=== PATIENT | female | born 1945 | race Caucasian/White ===

== ENCOUNTER → 2017-08-25 | Outpatient (REF) | payer BC, OTHER | LOC: M LAB REF 15:25 | PROVIDERS: ATTEND Nurse Practitioner Family | DX: L08.9 Local infection of the skin and subcutaneous tissue, unspecified (principal) ==

== ENCOUNTER → 2018-05-26 | Outpatient (CLI) | payer MEDICARE, BC, OTHER | LOC: M RAD 09:18 | DX: I70.0 Atherosclerosis of aorta (principal); I71.4 Abdominal aortic aneurysm, without rupture | CPT/HCPCS: 76775 ==

== ENCOUNTER → 2018-07-18 | Outpatient (CLI) | payer MEDICARE, BC, OTHER | LOC: M RAD 12:03 | DX: I73.9 Peripheral vascular disease, unspecified (principal) | CPT/HCPCS: 93979 ==

== ENCOUNTER → 2018-08-21 | Outpatient (CLI) | payer MEDICARE, BC, OTHER ==
[~2018-08-21] MED LIST: HEPARIN 1,000 UNITS/ML 10ML VIAL (FOR RADIOLOGY& DIALYSIS ONLY) As Ordered; ISOVUE-300 61% 50ML VIAL (Q9967) As Ordered; LIDOCAINE 2% MDV 20 ML VIAL As Ordered; MIDAZOLAM INJ 2 MG/2 ML VIAL (J2250) As Ordered; fentaNYL 100 MCG/2 ML INJECTION (J3010) As Ordered
[2018-08-21 07:05] LABS: HEMATOCRIT 34.8 % (36.0-47.0); HEMOGLOBIN 11.7 g/dl (12.0-15.5); MEAN CORPUSCULAR HEMOGLOBIN 29.6 pg (27.0-33.0); MEAN CORPUSCULAR HGB CONC 33.6 g/dl (32.0-36.5); MEAN CORPUSCULAR VOLUME 88.1 fl (80.0-96.0); PLATELET COUNT, AUTOMATED 352 10^3/uL (150-450); RED BLOOD COUNT 3.95 10^6/uL (4.00-5.40); RED CELL DISTRIBUTION WIDTH 11.7 % (11.5-14.5); WHITE BLOOD COUNT 7.7 10^3/uL (4.0-10.0)
[2018-08-21 07:23] LABS: ANION GAP 9 MEQ/L (8-16); BLOOD UREA NITROGEN 19 MG/DL (7-18); CALCIUM LEVEL 8.9 MG/DL (8.8-10.2); CARBON DIOXIDE LEVEL 24 MEQ/L (21-32); CHLORIDE LEVEL 108 MEQ/L (98-107); CREATININE FOR GFR 1.07 MG/DL (0.55-1.30); GLOMERULAR FILTRATION RATE 53.7 (>39); GLUCOSE, FASTING 94 MG/DL (70-100); POTASSIUM SERUM 4.3 MEQ/L (3.5-5.1); SODIUM LEVEL 141 MEQ/L (136-145)
== END | disposition home or self-care (01) ==
LOC: M IRPRO 06:32
DX: I71.4 Abdominal aortic aneurysm, without rupture (principal); I70.0 Atherosclerosis of aorta; I70.213 Atherosclerosis of native arteries of extremities with intermittent claudication, bilateral legs
CPT/HCPCS: 36200

== ENCOUNTER → 2018-08-25 | Outpatient (CLI) | payer MEDICARE, BC, OTHER | END | disposition home or self-care (01) | LOC: M IRPRO 08:44 | DX: I70.213 Atherosclerosis of native arteries of extremities with intermittent claudication, bilateral legs (principal); I70.0 Atherosclerosis of aorta; I71.4 Abdominal aortic aneurysm, without rupture | CPT/HCPCS: 37221 ==

== ENCOUNTER → 2018-10-02 | Outpatient (CLI) | payer MEDICARE, BC, OTHER ==
--- NOTE | 2018-10-02 13:27 | REP ---
Bilateral lower extremity arterial Doppler ultrasound: History: Peripheral vascular disease. Bilateral common iliac and external iliac artery stents. Findings: Ankle brachial indices are normal 1.3 on the right and 1.2 on the left. Bilaterally patent common iliac artery and external iliac artery stents are seen. Biphasic waveforms are noted in the arterial tree in the lower extremities bilaterally. An abdominal aortic aneurysm is noted distally measuring 3.1 cm in greatest anteroposterior dimension. Greatest transverse dimension is 4.1 cm. Mildly increased velocities seen in the common femoral artery on the left. No other evidence of significant stenosis seen. Right lower extremity arterial velocity chart: Right WHITNEY 194 cm/S D I A 117 CF A 169 Profunda 90 Proximal SFA 134 Mid SFA 110 Distal SFA 113 Popliteal 61 Proximal AT A 45 Tibioperoneal trunk 64 Proximal INDIAN TRADER 78 Distal INDIAN TRADER 76 Distal AT A 46 Left lower extremity arterial velocity chart. Left WHITNEY 178 cm/S D I A 130 CF A 200 Profunda 133 Proximal SFA 107 Mid SFA 100 Distal SFA 117 Popliteal 95 Proximal AT A 47 Tibioperoneal trunk 65 Proximal INDIAN TRADER 74 Distal INDIAN TRADER 60 Distal AT A 62 Electronically Signed by Darnell Bailey MD 10/02/2018 01:19 P
== END ==
LOC: M RAD 10:26
PROVIDERS: ATTEND Surgery Vascular Surgery
DX: I73.9 Peripheral vascular disease, unspecified (principal)

== ENCOUNTER 2018-11-06 09:16 | Day surgery (SDC) | payer MEDICARE, BC, OTHER ==
[~2018-11-06] VITALS: Ht 162.6 cm; Wt 64.0 kg
[~2018-11-06 09:16] MED LIST changes: +ASPI81TA85 PO; +CALC600T57 PO; +COLA100C5 PO; +CRES10TA32 PO; +FENO145T13 PO; -HEPARIN 1,000 UNITS/ML 10ML VIAL (FOR RADIOLOGY& DIALYSIS ONLY) As Ordered; -ISOVUE-300 61% 50ML VIAL (Q9967) As Ordered; -LIDOCAINE 2% MDV 20 ML VIAL As Ordered; +LISI-538 PO; -MIDAZOLAM INJ 2 MG/2 ML VIAL (J2250) As Ordered; +OMEP20CA3 PO; -fentaNYL 100 MCG/2 ML INJECTION (J3010) As Ordered
[2018-11-06] MEDS ORDERED: NS 1,000 ML IV ONE (10:00)
[2018-11-06] MEDS ORDERED: LIDOCAINE 2% INJ 100 MG/5 ML SDV (FOR ANES.) As Ordered ONE (10:17)
[2018-11-06] MEDS ORDERED: PROPOFOL 200 MG/20 ML VIAL As Ordered ONE (10:17)
[2018-11-06] MEDS ORDERED: fentaNYL 100 MCG/2 ML INJECTION (J3010) As Ordered ONE (10:23)
--- NOTE | 2018-11-06 11:03 | ROOR ---
Patient Name: Mirta Chavira Procedure Date: 11/06/2018 10:44 AM Date of : 1945 Age: 72 Room: [facility] Gender: Female Note Status: Finalized Procedure: Upper GI endoscopy + Balloon Dilatation Indications: Dysphagia, Heartburn Providers: Sekou Vazquez MD Referring MD: Farhan Crocker NP Requesting Provider: Medicines: Monitored Anesthesia Care Complications: No immediate complications. Procedure: Pre-Anesthesia Assessment: - The heart rate, respiratory rate, oxygen saturations, blood pressure, adequacy of pulmonary ventilation, and response to care were monitored throughout the procedure. The Endoscope was introduced through the mouth, and advanced to the second part of duodenum. The upper GI endoscopy was accomplished without difficulty. The patient tolerated the procedure well. Findings: The Z-line was variable and was found 35 cm from the incisors. A TTS dilator was passed through the scope. Dilation with an 18-19-20 mm balloon dilator was performed to 20 mm. A small hiatal hernia was present. The exam of the stomach was otherwise normal. The exam of the duodenum was otherwise normal. Impression: - Z-line variable, 35 cm from the incisors. Dilated. - Small hiatal hernia. - No specimens collected. - The examination was otherwise normal. Recommendation: - Patient has a contact number available for emergencies. The signs and symptoms of potential delayed complications were discussed with the patient. Return to normal activities tomorrow. Written discharge instructions were provided to the patient. - High fiber diet. - Discharge patient to home. - Continue present medications. - Return to referring physician. - The findings and recommendations were discussed with the patient's family. Sekou Vazquez MD Sekou Vazquez MD 11/06/2018 11:02:26 AM This report has been signed electronically. Number of Addenda: 0 Note Initiated On: 11/06/2018 10:44 AM Estimated Blood Loss: Estimated blood loss: none.
[2018-11-06] MEDS ORDERED: PHENYLephrine HCL 500 MCG/5 ML (100MCG/ML) SYRINGE (J2370) As Ordered ONE (11:04)
--- NOTE | 2018-11-06 11:27 | ROOR ---
Patient Name: Mirta Chavira Procedure Date: 11/06/2018 10:44 AM Date of : 1945 Age: 72 Room: [facility] Gender: Female Note Status: Finalized Procedure: Total Colonoscopy to Cecum + Biopsy Polypectomy Indications: High risk colon cancer surveillance: Personal history of colonic polyps, Last colonoscopy 5 years ago Providers: Sekou Vazquez MD Referring MD: Farhan Crocker NP Requesting Provider: Medicines: Monitored Anesthesia Care Complications: No immediate complications. Procedure: Pre-Anesthesia Assessment: - The heart rate, respiratory rate, oxygen saturations, blood pressure, adequacy of pulmonary ventilation, and response to care were monitored throughout the procedure. The Colonoscope was introduced through the anus and advanced to the cecum, identified by appendiceal orifice and ileocecal valve. The colonoscopy was performed without difficulty. The patient tolerated the procedure well. The quality of the bowel preparation was excellent. Findings: The perianal and digital rectal examinations were normal. Non-bleeding internal hemorrhoids were found during retroflexion. The hemorrhoids were small and Grade I (internal hemorrhoids that do not prolapse). Scattered small-mouthed diverticula were found in the recto-sigmoid colon and sigmoid colon. A small polyp was found at 60 cm proximal to the anus. The polyp was sessile. The polyp was removed with a cold biopsy forceps. Resection and retrieval were complete. Multiple sessile polyps were found in the rectum. The polyps were small in size. These polyps were removed with a jumbo cold forceps. Resection and retrieval were complete. The exam was otherwise without abnormality on direct and retroflexion views. Impression: - Non-bleeding internal hemorrhoids. - Diverticulosis in the recto-sigmoid colon and in the sigmoid colon. - One small polyp at 60 cm proximal to the anus, removed with a cold biopsy forceps. Resected and retrieved. - Multiple small polyps in the rectum, removed with a jumbo cold forceps. Resected and retrieved. - The examination was otherwise normal on direct and retroflexion views. - The exam was otherwise normal to the cecum. Recommendation: - Patient has a contact number available for emergencies. The signs and symptoms of potential delayed complications were discussed with the patient. Return to normal activities tomorrow. Written discharge instructions were provided to the patient. - High fiber diet. - Discharge patient to home. - Continue present medications. - Await pathology results. - Telephone GI clinic for pathology results in 1 week. - Repeat colonoscopy for symptoms only. - Return to referring physician. - The findings and recommendations were discussed with the patient's family. Sekou Vazquez MD Sekou Vazquez MD 11/06/2018 11:27:34 AM This report has been signed electronically. Number of Addenda: 0 Note Initiated On: 11/06/2018 10:44 AM Estimated Blood Loss: Estimated blood loss: none.
[2018-11-06 11:50] VITALS: BP 143/67
== END 2018-11-06 11:58 | disposition home or self-care (01) ==
LOC: M OPP 09:16
PROVIDERS: ATTEND Internal Medicine Gastroenterology
DX: Z12.11 Encounter for screening for malignant neoplasm of colon (principal); Z86.010 Personal history of colon polyps; K64.0 First degree hemorrhoids; D12.6 Benign neoplasm of colon, unspecified; K62.1 Rectal polyp; K57.30 Diverticulosis of large intestine without perforation or abscess without bleeding; K22.8 Other specified diseases of esophagus; K44.9 Diaphragmatic hernia without obstruction or gangrene; R13.10 Dysphagia, unspecified; R12 Heartburn; Z79.82 Long term (current) use of aspirin; Z79.899 Other long term (current) drug therapy; Z88.8 Allergy status to other drugs, medicaments and biological substances; Z87.891 Personal history of nicotine dependence
CPT/HCPCS: 43249; 45380; 88305; J2370; J3010

== ENCOUNTER → 2019-06-05 | Outpatient (CLI) | payer MEDICARE, BC, OTHER ==
[~2019-06-05] MED LIST changes: +CRES10TA PO; -CRES10TA32 PO; -FENO145T13 PO; +FENO145T7 PO; +OMEP1CAP73 PO; -OMEP20CA3 PO
--- NOTE | 2019-06-05 12:36 | REP ---
Abdominal aorta ultrasound: Abdominal Aortic Measurements are as follows: Proximal 2.4 cm AP 2.4 cm TRV Renal Artery Level not seen cm AP not seen cm TRV Mid Aorta 1.9 cm AP 1.8 cm TRV Distal Aorta 3.9 cm AP 4.0 cm TRV R Iliac Artery 0.8 cm AP 1.0 cm TRV L Iliac Artery 1.3 cm AP 1.3 cm TRV There is an aneurysm of the distal aorta measuring 3.9 x 4.0 cm and spanning a craniocaudad length of 5.2 cm. There is atheromatous plaque in the distal abdominal aorta. There are bilateral endovascular stents in the common iliac arteries and external iliac arteries bilaterally. The stents are patent bilaterally. Right WHITNEY flow velocity is 317 cm/sec with biphasic Phasicity. The right E I A flow velocity is 206 cm/sec with biphasic Phasicity. The left WHITNEY flow velocity is 308 cm/sec with biphasic Phasicity. The left EIA flow velocity is 185 cm/sec with biphasic Phasicity. Electronically Signed by Francisco Javier Garcia MD 06/05/2019 12:28 P
--- NOTE | 2019-06-05 13:12 | REP ---
BILATERAL LOWER EXTREMITY DUPLEX DOPPLER ARTERIAL ULTRASOUND: Real-time ultrasound evaluation and duplex Doppler interrogation of bilateral lower extremity arterial systems is performed. There is mild to moderate scattered plaquing and narrowing diffusely bilaterally. JIM right is 0.9 and left 1.0. There is no definite duplex Doppler sonographic evidence of hemodynamically significant stenosis of the bilateral lower extremity arterial systems. Biphasic waveforms are seen diffusely bilaterally. PEAK SYSTOLIC VELOCITY RIGHT LEFT Common femoral artery 197.0 cm/s 124.0 cm/s Profunda 83.4 121.0 Proximal SFA 91.2 91.1 Superficial femoral artery mid 95.3 101.0 Superficial femoral artery distal 91.8 105.0 Popliteal 53.5 99.0 Proximal anterior tibial artery 30.1 37.3 Tibial peroneal trunk 73.7 69.7 Proximal posterior tibial artery 75.7 102.0 Distal posterior tibial artery 81.8 65.9 Distal anterior tibial artery 89.3 51.0 Electronically Signed by Francisco Javier Henriquez MD 06/06/2019 10:13 A
== END ==
LOC: M RAD 09:53
PROVIDERS: ATTEND Surgery Vascular Surgery
DX: I71.4 Abdominal aortic aneurysm, without rupture (principal); I70.213 Atherosclerosis of native arteries of extremities with intermittent claudication, bilateral legs

== ENCOUNTER → 2020-07-07 | Outpatient (CLI) | payer MEDICARE, BC, OTHER ==
[~2020-07-07] MED LIST changes: -ASPI81TA85 PO; +ASPI81TA86 PO
--- NOTE | 2020-07-07 12:43 | REP ---
INDICATION: AAA W/O RUPTURE, CLAUDICATION CT 1 / US 2 COMPARISON: 08/21/2018 TECHNIQUE: Axial noncontrast images from the lung bases to the pubic symphysis with coronal and sagittal reformations. FINDINGS: Extensive atherosclerotic changes are appreciated throughout the aorta and branch vessels. Ectatic appearance to the infrarenal abdominal aorta with focal aneurysmal dilatation measuring roughly 3.5 x 4.0 cm true diameter originating approximately 3.5 cm from the level of the renal arteries and tapering to relatively normal diameter at the level of the bifurcation where bilateral common iliac stents are identified extending into the bilateral external iliac arteries. Liver, spleen, pancreas, bilateral adrenal glands and kidneys are relatively normal/stable. Cholelithiasis noted without acute cholecystitis. Extensive colonic and sigmoid diverticulosis noted without acute diverticulitis. No evidence for bowel obstruction or acute inflammatory process. Normal terminal ileum and appendix identified in the right lower quadrant. Pelvis demonstrates normal bladder and evidence for prior hysterectomy. No ascites. No free air. No adenopathy. Lung bases are clear. IMPRESSION: 1. Extensive atherosclerotic changes along with relatively stable ectatic/aneurysmal appearance to the infrarenal abdominal aorta as described above. Bilateral iliac stents noted on current examination. 2. Diverticulosis. 3. Cholelithiasis <Electronically signed by Geronimo Bermudez > 07/07/20 [id number]
--- NOTE | 2020-07-07 15:19 | REP ---
INDICATION: AAA W/O RUPTURE, CLAUDICATION CT 1 / US 2 COMPARISON: 06/05/2019 TECHNIQUE: Real time henriquez scale and color Doppler evaluation of the bilateral lower extremity arterial vasculature using linear high frequency transducer. FINDINGS: Henriquez scale and color images demonstrate moderate atheromatous plaquing bilaterally without areas of focal stenosis or occlusion. Biphasic wave pattern is noted throughout the right lower extremity and left profundus, proximal and mid superficial femoral arteries with monophasic wave patterns noted throughout the remainder of the left lower extremity. Right JIM equals 0.88. Left JIM equals 0.85. Peak systolic velocities (cm/sec) Common femoral artery: Right 147.9; Left 146.1 Profunda femoris: Right 128.0; Left 84.0 SFA (proximal): Right 139.5; Left 97.7 SFA (mid): Right 141.0; Left 85.7 SFA (distal): Right 79.2; Left 81.0 Popliteal artery: Right 66.5; Left 61.7 ALICIA (prox.): Right ; Left 43.8 Tibioperoneal trunk: Right 96.0; Left 72.8 CHRONOMETER ADJUSTER (prox.): Right 60.7; Left 80.8 CHRONOMETER ADJUSTER (distal): Right 82.7; Left 38.7 ALICIA (distal): Right 93.7; Left 34.3 IMPRESSION: Moderate atheromatous changes noted bilaterally without evidence for stenosis or occlusion. <Electronically signed by Geronimo Bermudez > 07/07/20 [id number]
== END ==
LOC: M RAD 12:13
PROVIDERS: ATTEND Physician Assistant
DX: I71.4 Abdominal aortic aneurysm, without rupture (principal); I70.213 Atherosclerosis of native arteries of extremities with intermittent claudication, bilateral legs

== ENCOUNTER → 2021-01-05 | Outpatient (CLI) | payer MEDICARE, BC, OTHER ==
[~2021-01-05] MED LIST changes: -LISI-538 PO; +LISI20TA33 PO
--- NOTE | 2021-01-05 14:31 | REP ---
INDICATION: AAA. COMPARISON: 07/07/2020 and 08/21/2018 both without intravenous contrast administration TECHNIQUE: Limited noncontrast enhanced helical CT FINDINGS: There is no change in the lung bases. Limited noncontrast enhanced evaluation of the abdominal aorta shows a stable infrarenal aneurysm again, measuring approximately 3.7 cm AP by 3.7 cm with. There is no abnormal Soniya aortic density. There is no abnormal central calcium displacement of calcified atherosclerotic change. Limited evaluation of the solid intra-abdominal organs and gallbladder show no significant changes. Note is again made of cholelithiasis and bilateral renovascular calcifications. There is an unchanged right renal cyst. The bowel loops and the mesenteries have not changed significantly. Bilateral common iliac arterial stents are again noted. There is no significant change in appearance of the osseous structures. IMPRESSION: There has been no significant change compared to the prior exams as described above. <Electronically signed by Amador Javier > 01/05/21 [id number]
== END ==
LOC: M RAD 14:05
PROVIDERS: ATTEND Physician Assistant
DX: I71.4 Abdominal aortic aneurysm, without rupture (principal)

== ENCOUNTER → 2021-12-23 | Outpatient (CLI) | payer MEDICARE, BC, OTHER | LOC: M RAD 08:53 | PROVIDERS: ATTEND Family Medicine | DX: Z87.891 Personal history of nicotine dependence (principal) ==

== ENCOUNTER → 2022-11-17 | Outpatient (REF) | payer MEDICARE, BC, OTHER | LOC: M SFHCDERM 17:16 | PROVIDERS: ATTEND Dermatology | DX: C44.311 Basal cell carcinoma of skin of nose (principal) ==

== ENCOUNTER → 2023-03-10 | Outpatient (CLI) | payer MEDICARE, BC, OTHER | LOC: M RAD 08:59 | PROVIDERS: ATTEND Family Medicine | DX: F17.211 Nicotine dependence, cigarettes, in remission (principal) ==

== ENCOUNTER → 2023-05-10 | Outpatient (REF) | payer MEDICARE, OTHER | LOC: M SFHCDERM 18:41 | PROVIDERS: ATTEND Dermatology | DX: L82.1 Other seborrheic keratosis (principal) ==

== ENCOUNTER → 2023-07-12 | Outpatient (REF) | payer MEDICARE, OTHER | LOC: M SFHCDERM 12:34 | PROVIDERS: ATTEND Dermatology | DX: L57.8 Other skin changes due to chronic exposure to nonionizing radiation (principal) ==

== ENCOUNTER → 2024-05-23 | Outpatient (CLI) | payer MEDICARE, BC | LOC: M RAD 07:36 | PROVIDERS: ATTEND Family Medicine | DX: Z12.2 Encounter for screening for malignant neoplasm of respiratory organs (principal); F17.211 Nicotine dependence, cigarettes, in remission ==

== ENCOUNTER 2024-06-18 11:36 | Day surgery (SDC) | payer MEDICARE, BC ==
[~2024-06-18] VITALS: Ht 162.6 cm; Wt 66.3 kg
[~2024-06-18 11:36] MED LIST changes: +ECOT81TA5 PO; +PROBCAP14 PO; +ROSU10TA61 PO; +XIID5DRO
[2024-06-18] MEDS: NS 1,000 ML IV ONE (12:17)
[2024-06-18] MEDS ORDERED: LIDOCAINE 2% 100MG/5ML SDV (FOR ANES.) As Ordered ONE (13:40)
[2024-06-18] MEDS ORDERED: fentaNYL 100 MCG/2 ML INJECTION As Ordered ONE (13:40)
[2024-06-18] MEDS ORDERED: propofoL 500 MG/50 ML VIAL As Ordered ONE (13:40)
[2024-06-18 14:00] VITALS: TEMP 97.1
[2024-06-18 14:17] VITALS: BP 141/65; O2SAT 97
== END 2024-06-18 14:20 | disposition home or self-care (01) ==
LOC: M OPP 11:36
PROVIDERS: ATTEND Internal Medicine Gastroenterology
DX: R13.10 Dysphagia, unspecified (principal); K31.89 Other diseases of stomach and duodenum; K44.9 Diaphragmatic hernia without obstruction or gangrene; K21.9 Gastro-esophageal reflux disease without esophagitis; Z86.010 Personal history of colon polyps; Z87.19 Personal history of other diseases of the digestive system; I10 Essential (primary) hypertension; E78.00 Pure hypercholesterolemia, unspecified; R32 Unspecified urinary incontinence; Z79.899 Other long term (current) drug therapy; Z79.82 Long term (current) use of aspirin; Z88.8 Allergy status to other drugs, medicaments and biological substances; Z88.7 Allergy status to serum and vaccine; Z87.891 Personal history of nicotine dependence; Z90.710 Acquired absence of both cervix and uterus
CPT/HCPCS: 43239; 88305; J3010

== ENCOUNTER → 2024-06-28 | Outpatient (CLI) | payer MEDICARE, BC | LOC: M CARPUL 10:02 | PROVIDERS: ATTEND Family Medicine | DX: I08.0 Rheumatic disorders of both mitral and aortic valves (principal) ==